=== PATIENT | female | born 1970 | race Caucasian/White ===

== ENCOUNTER 2017-03-15 19:04 | Emergency (ER) | payer OTHER ==
[~2017-03-15] VITALS: Ht 165.1 cm; Wt 57.1 kg
[~2017-03-15 19:04] MED LIST: AZIT250T94 PO; BACTDS PO; BENZ100C70 PO; CEPH-443 PO; FAMO-96 PO; HYDR-3498 PO; IBUP-1542 PO; IBUP400T22 PO; LORA1TAB54 PO; MED4DP PO; ONDA4TAB35 PO; PROM6.25 PO
[2017-03-15 19:17] VITALS: Ht 165.1 cm; Wt 57.1 kg
[2017-03-15] MEDS ORDERED: ONDANSETRON (ODT) 4 MG TAB ODT STA (22:06)
--- NOTE | 2017-03-15 22:17 | ERD ---
ER Documentation Chief Complaint Chief Complaint gen intermittent abd pain since 9am. +n/v, emesis x1. No hx of same HPI 46-year-old female presents here to emergency department for complaints of periumbilical pain vomiting twice, diarrhea one episode started today. Patient describes the pain as sharp cramping pain, 8/10 scale, not better or worse with anything. Patient did not take any medications to help with symptoms. Patient denies any fever chills. Patient denies any hematuria or dysuria. Patient denies any blood in his stool or blood in the vomit. Patient denies any black stool. ROS All systems reviewed and are negative except as per history of present illness. Medications Home Meds Active Scripts Methylprednisolone* (Medrol* DOSE PACK) 4 Mg/Dose-Pack Tab.ds.pk, 4 MG PO . DIRECTED for 5 Days, PACKET Prov:DUNG TRUONG 07/08/15 Ibuprofen* (Motrin*) 600 Mg Tab, 600 MG PO Q6, #30 TAB Prov:DUNG TRUONG 07/08/15 Famotidine* (Pepcid*) 20 Mg Tablet, 20 MG PO BID for 4 Days, TAB Prov:CHANTELL JONES PA-C 07/06/15 Hydrocodone Bit-Acetaminophen* ([place]*) 5-325 Mg Tab, 1 TAB PO Q6 Y for PAIN, # 7 TAB Prov:CHANTELL JONES PA-C 07/06/15 Benzonatate* (Tessalon Perle*) 100 Mg Capsule, 100 MG PO Q8H Y for COUGH, #20 CAP Prov:REGINALD MARCELO PA-C 06/27/15 Azithromycin* (Zithromax*) 250 Mg Tablet, 250 MG PO .ZPACK DIRECTED, #6 TAB TAKE 500 MG (2 TABS) THE FIRST DAY THEN 250 MG (1 TAB) DAYS 2-5 Prov:LEONARDA ORTIZ MD 06/24/15 Ibuprofen* (Motrin*) 600 Mg Tab, 600 MG PO Q6, #14 TAB Prov:LEONARDA ORTIZ MD 06/24/15 Promethazine w/Codeine* (Phenergan w/Codeine* Syrup) 5 Ml Syrup, 5 ML PO Q4H Y for COUGH for 5 Days, ML 6 oz Prov:LEONARDA ORTIZ MD 06/24/15 Ibuprofen* (Motrin*) 400 Mg Tab, 400 MG PO Q6H Y for PAIN, #20 TAB Prov:THONY CHAVEZ PA-C 06/06/15 Promethazine w/Codeine* (Phenergan w/Codeine* Syrup) 5 Ml Syrup, 5 ML PO Q4H Y for COUGH, #120 ML Prov:THONY CHAVEZ PA-C 06/06/15 Loratadine/Pseudoephedrine* (Claritin-D* 12 Hr) 5-120 Mg Tab.er.12h, 1 TAB PO Q12, #14 TAB.SA Prov:THONY CHAVEZ PA-C 06/06/15 Sulfamethoxazole-Trimethoprim* (Bactrim* DS) 800-160 Mg Tab, 1 TAB PO BID for 7 Days, TAB Prov:CHELO BAUMANN MD 05/23/15 Cephalexin* (Keflex*) 500 Mg Capsule, 500 MG PO QID for 7 Days, CAP Prov:CHELO BAUMANN MD 05/23/15 Ibuprofen* (Motrin*) 600 Mg Tab, 600 MG PO Q6H Y for PAIN AND OR ELEVATED TEMP, #30 TAB Prov:CHELO BAUMANN MD 05/23/15 Ondansetron Hcl* (Zofran* ODT) 4 mg -ODT Tab.disper, 4 MG PO Q6 Y for NAUSEA AND /OR VOMITING, #10 TAB Prov:CHELO BAUMANN MD 10/23/14 Allergies Allergies: Coded Allergies: No Known Allergy (Unverified , 03/15/17) PMhx/Soc Medical and Surgical Hx: pt denies Medical Hx, pt denies Surgical Hx History of Surgery: No Anesthesia Reaction: No Hx Neurological Disorder: No Hx Respiratory Disorders: No Hx Cardiac Disorders: No Hx Psychiatric Problems: No Hx Miscellaneous Medical Probl: No (PT. DENIES MEDICAL AND SURGICAL HX.) Hx Alcohol Use: No Hx Substance Use: No Hx Tobacco Use: No Smoking Status: Never smoker FmHx Family History: No coronary disease, No diabetes, No other Physical Exam Vitals Vital Signs Date Time Temp Pulse Resp B/P Pulse Ox O2 Delivery O2 Flow Rate FiO2 03/15/17 19:17 99.2 83 18 128/73 100 Physical Exam GENERAL: The patient is well developed and appropriate for usual state of health, in no apparent distress. CHEST: Clear to auscultation bilaterally. There are no rales, wheezes or rhonchi. HEART: Regular rate and rhythm. No murmurs, clicks, rubs or gallops. No S3 or S4. ABDOMEN: Soft, generalized tenderness noted. Hyperactive bowel sounds. No rebound or guarding. No gross peritonitis. No gross organomegaly or masses. No Lagunas sign or McBurney point tenderness. BACK: No midline or flank tenderness. EXTREMITIES: Equal pulses bilaterally. There is no peripheral clubbing, cyanosis or edema. No focal swelling or erythema. Full range of motion. Grossly neurovascularly intact. NEURO: Alert and oriented. Cranial nerves 2-12 intact. Motor strength in all 4 extremities with 5/5 strength. Sensation grossly intact. Normal speech and gait. SKIN: There is no apparent rash or petechia. The skin is warm and dry. HEMATOLOGIC AND LYMPHATIC: There is no evidence of excessive bruising or lymphedema. No gross cervical, axillary, or inguinal lymphadenopathy. Result Diagram: 03/15/174 03/15/174 Results 24 hrs Laboratory Tests Test 03/15/17 22:24 White Blood Count 9.610^3/ul Red Blood Count 4.5910^6/ul Hemoglobin 13.4g/dl Hematocrit 40.5% Mean Corpuscular Volume 88.2fl Mean Corpuscular Hemoglobin 29.2pg Mean Corpuscular Hemoglobin Concent 33.1g/dl Red Cell Distribution Width 13.2% Platelet Count 38514^3/UL Mean Platelet Volume 10.0fl Neutrophils % 84.5% Lymphocytes % 7.1% Monocytes % 5.1% Eosinophils % 2.5% Basophils % 0.2% Nucleated Red Blood Cells % 0.0/100WBC Neutrophils # 8.110^3/ul Lymphocytes # 0.710^3/ul Monocytes # 0.510^3/ul Eosinophils # 0.210^3/ul Basophils # 0.010^3/ul Nucleated Red Blood Cells # 0.010^3/ul Urine Color YELLOW Urine Clarity CLEAR Urine pH 6.0 Urine Specific [place] 1.015 Urine Ketones NEGATIVEmg/dL Urine Nitrite NEGATIVEmg/dL Urine Bilirubin NEGATIVEmg/dL Urine Urobilinogen NEGATIVEmg/dL Urine Leukocyte Esterase NEGATIVELeu/ul Urine Hemoglobin NEGATIVEmg/dL Urine Glucose NEGATIVEmg/dL Urine Total Protein NEGATIVEmg/dl Sodium Level 141mmol/L Potassium Level 3.8mmol/L Chloride Level 102mmol/L Carbon Dioxide Level 28mmol/L Anion Gap 15 Blood Urea Nitrogen 16mg/dl Creatinine 0.50mg/dl Glucose Level 109mg/dl Calcium Level 9.8mg/dl Total Bilirubin 0.6mg/dl Direct Bilirubin 0.00mg/dl Indirect Bilirubin 0.6mg/dl Aspartate Amino Transf (AST/SGOT) 32IU/L Alanine Aminotransferase (ALT/SGPT) 49IU/L Alkaline Phosphatase 52IU/L Total Protein 7.9g/dl Albumin 4.3g/dl Globulin 3.60g/dl Albumin/Globulin Ratio 1.19 Lipase 73U/L Current Medications Medications (Trade) Dose Ordered Sig/Bayron Route PRN Reason Start Time Stop Time Status Last Admin Dose Admin Ondansetron HCl (Zofran Odt) 4 mg ONCE STAT ODT 03/15/17 22:06 03/15/17 22:07 DC 03/15/17 22:19 Patient was given Zofran here in the emergency department. After treatment, patient was able to tolerate po fluids here in the emergency department without any vomiting. There is no signs and symptoms of dehydration. Patient was given medication for pain here in emergency department, after treatment, patient verbalized feeling much better. Patient's pain is improved. PROCEDURE: CT abdomen and pelvis without contrast. CLINICAL INDICATION: Abdominal pain TECHNIQUE: CT scan of the abdomen and pelvis without contrast was performed. Sagittal and coronal reformatted images were obtained from the axial source images. One or more of the following dose reduction techniques were used: Automated exposure control, adjustment of the mA and/or kV according to patient size, use of iterative reconstruction technique. CTDI = 6.02 mGy; DLP = 326.26 mGy-cm COMPARISON: 07/06/2015 FINDINGS: Visualized lower thorax: The lung bases are clear. There is no evidence for pleural effusion. Liver, gallbladder, pancreas and spleen: The liver is normal and size, contour and attenuation. There is no evidence for a liver mass or ductal dilatation. The gallbladder is unremarkable. No common bile duct abnormality is demonstrated. The pancreas is unremarkable. The spleen is normal in size. Adrenal glands and genitourinary system: The adrenal glands are normal bilaterally. The kidneys are normal and size, contour and attenuation with no evidence for masses, calculi or hydronephrosis. The ureters are unremarkable. No urinary bladder abnormality is demonstrated. The uterus and adnexa are unremarkable. A trace amount of free fluid in the posterior cul-de-sac is suggested, probably physiologic. Gastrointestinal system: The stomach is mildly distended with a gas/fluid level , gastritis or gastroparesis is difficult to exclude. The small bowel is normal in caliber with no ileus, obstruction or wall thickening. There is no evidence of appendicitis. Mild diverticular disease of the colon is again noted. There is no evidence for colitis or diverticulitis. Peritoneum, retroperitoneum, lymph nodes and vessels: The abdominal aorta is normal in caliber. There is no evidence for atherosclerotic calcification. The inferior vena cava is unremarkable. There is no evidence for adenopathy or mass. There is no ascites. Osseous structures and musculoskeletal findings: Sclerotic focus of the right inferior pubic ramus at the symphysis is again noted probably benign. There is no evidence of fracture or destructive lesion. 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 Mild lumbar spondylosis is noted No muscular abnormality or soft tissue pathology is present. RPTAT:HJJR IMPRESSION: 1. Gastric distension not present on 07/06/2015 equivocal for gastroparesis or possibly gastritis. 2. Minimal diverticular disease of the colon is again seen without evidence of diverticulitis. 3. Trace amount of free fluid in the posterior cul-de-sac is probably physiologic. 4. Stable focal sclerotic lesion of the right inferior pubic ramus near the symphysis is presumably benign. Physician Jarek Date Time Electronically viewed and signed by Physician Jarek on 03/15/2017 23:41 JR/ CC: TONY RENEE [employer] Procedures/MDM Medical Decision Making: Patient symptoms of abdominal pain most likely consistent with viral gastroenteritis. No symptoms of dehydration. No active vomiting at this time. There is low suspicion for abdominal emergencies at this time. Patients abdominal exam is normal at this time. Patients radiology exam does not show any abdominal emergencies at this time. There is low suspicion for appendicitis, cholecystitis, abdominal aortic aneurysms or peritonitis at this time. There is low suspicion for sepsis. Patient appears well and is hemodynamically stable. Disposition: Home. Condition: Stable Prescription Bentyl [place] Zofran Instructions: Patient is advised to take medications as prescribed. Patient is advised to rest, increase fluid intake and do brat diet for next 1-2 days and progress as tolerated. Patient is advised that if symptoms are worse, severe abdominal pain, uncontrolled vomiting, high fever, severe flank pain, worst signs and symptoms, to return to the emergency department immediately. Otherwise, patient can follow up with primary care doctor in 5-7 days. Disclaimer: Inadvertent spelling and grammatical errors are likely due to EHR/ dictation software use and do not reflect on the overall quality of patient care. Also, please note that the electronic time recorded on this note does not necessarily reflect the actual time of the patient encounter. Departure Diagnosis: Primary Impression: Viral gastroenteritis Condition: Stable Patient Instructions: Gastroenteritis, Viral (6Y-Adult) Additional Instructions: : Patient is advised to take medications as prescribed. Patient is advised to rest, increase fluid intake and do brat diet for next 1-2 days and progress as tolerated. Patient is advised that if symptoms are worse, severe abdominal pain , uncontrolled vomiting, high fever, severe flank pain, worst signs and symptoms , to return to the emergency department immediately. Otherwise, patient can follow up with primary care doctor in 5-7 days. TONY RENEE NP Mar 15, 2017 22:17
[2017-03-15 22:45] LABS: BASOPHILS % 0.2 % (0.0-2.0); EOSINOPHILS # 0.2 10^3/ul (0.0-0.5); EOSINOPHILS % 2.5 % (0.0-7.0); HEMATOCRIT 40.5 % (37.0-47.0); HEMOGLOBIN 13.4 g/dl (12.0-16.0); LYMPHOCYTES # 0.7 10^3/ul (0.8-2.9); LYMPHOCYTES % 7.1 % (15.0-51.0); MEAN CORPUSCULAR HEMOGLOBIN 29.2 pg (29.0-33.0); MEAN CORPUSCULAR HGB CONC 33.1 g/dl (32.0-37.0); MEAN CORPUSCULAR VOLUME 88.2 fl (82.0-101.0); MONOCYTE # 0.5 10^3/ul (0.3-0.9); MONOCYTES % 5.1 % (0.0-11.0); NEUTROPHIL # 8.1 10^3/ul (1.6-7.5); NEUTROPHILS % 84.5 % (39.0-77.0); PLATELET COUNT 326 10^3/UL (140-415); RED BLOOD COUNT 4.59 10^6/ul (4.20-5.40); RED CELL DISTRIBUTION WIDTH 13.2 % (11.5-14.5); WHITE BLOOD COUNT 9.6 10^3/ul (4.8-10.8)
[2017-03-15 22:56] LABS: ADD UMIC NO; UR ASCORBIC ACID NEGATIVE (NEGATIVE); UR BILIRUBIN (Dip) NEGATIVE (NEGATIVE); UR BLOOD (Dip) NEGATIVE (NEGATIVE); UR CLARITY CLEAR (CLEAR); UR COLOR YELLOW (YELLOW); UR GLUCOSE (Dip) NEGATIVE (NEGATIVE); UR KETONES (Dip) NEGATIVE (NEGATIVE); UR LEUKOCYTE ESTERASE (Dip) NEGATIVE Leu/ul (NEGATIVE); UR NITRITE (Dip) NEGATIVE (NEGATIVE); UR SPECIFIC GRAVITY (Dip) 1.015 (1.003-1.030); UR TOTAL PROTEIN (Dip) NEGATIVE (NEGATIVE); UR UROBILINOGEN (Dip) NEGATIVE (NEGATIVE)
[2017-03-15 23:18] LABS: ALBUMIN 4.3 g/dl (3.3-4.9); ALBUMIN/GLOBULIN RATIO 1.19; BILIRUBIN,INDIRECT 0.6 mg/dl (0-1.1); BILIRUBIN,TOTAL 0.6 mg/dl (0.2-1.3); CALCIUM 9.8 mg/dl (8.4-10.2); CREATININE 0.5 mg/dl (0.44-1.00); POTASSIUM 3.8 mmol/L (3.5-5.1); TOTAL PROTEIN 7.9 g/dl (6.1-8.1)
--- NOTE | 2017-03-15 23:41 | RADRPT ---
PROCEDURE: CT abdomen and pelvis without contrast. CLINICAL INDICATION: Abdominal pain TECHNIQUE: CT scan of the abdomen and pelvis without contrast was performed. Sagittal and coronal reformatted images were obtained from the axial source images. One or more of the following dose re duction techniques were used: Automated exposure control, adjustment of the mA and/or kV according t o patient size, use of iterative reconstruction technique. CTDI = 6.02 mGy; DLP = 326.26 mGy-cm COMPARISON: 07/06/2015 FINDINGS: Visualized lower thorax: The lung bases are clear. There is no evidence for pleural effusion. Liver, gallbladder, pancreas and spleen: The liver is normal and size, contour and attenuation. Th ere is no evidence for a liver mass or ductal dilatation. The gallbladder is unremarkable. No comm on bile duct abnormality is demonstrated. The pancreas is unremarkable. The spleen is normal in si ze. Adrenal glands and genitourinary system: The adrenal glands are normal bilaterally. The kidneys are normal and size, contour and attenuation with no evidence for masses, calculi or hydronephrosis. T he ureters are unremarkable. No urinary bladder abnormality is demonstrated. The uterus and adnexa are unremarkable. A trace amount of free fluid in the posterior cul-de-sac is suggested, probably p hysiologic. Gastrointestinal system: The stomach is mildly distended with a gas/fluid level, gastritis or gastr oparesis is difficult to exclude. The small bowel is normal in caliber with no ileus, obstruction o r wall thickening. There is no evidence of appendicitis. Mild diverticular disease of the colon is again noted. There is no evidence for colitis or diverticulitis. Peritoneum, retroperitoneum, lymph nodes and vessels: The abdominal aorta is normal in caliber. The re is no evidence for atherosclerotic calcification. The inferior vena cava is unremarkable. There is no evidence for adenopathy or mass. There is no ascites. Osseous structures and musculoskeletal findings: Sclerotic focus of the right inferior pubic ramus at the symphysis is again noted probably benign. There is no evidence of fracture or destructive les ion. 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 Mild lumbar spondylosis is noted No muscular abnorm ality or soft tissue pathology is present. RPTAT:HJJR IMPRESSION: 1. Gastric distension not present on 07/06/2015 equivocal for gastroparesis or possibly gastritis. 2. Minimal diverticular disease of the colon is again seen without evidence of diverticulitis. 3. Trace amount of free fluid in the posterior cul-de-sac is probably physiologic. 4. Stable focal sclerotic lesion of the right inferior pubic ramus near the symphysis is presumably benign. Physician Jarek Date Time Electronically viewed and signed by Ac Kumar Physician on 03/15/2017 23:41 /
[2017-03-16] MEDS ORDERED: HYDR-906 PO (00:05)
[2017-03-16] MEDS ORDERED: ONDA4TAB14 PO (00:05)
[2017-03-16] MEDS ORDERED: DICY10CA60 PO (00:05)
[2017-03-16] MEDS ORDERED: HYDROCODONE/APAP (5/325) TAB PO ONE (00:30)
[2017-03-16 00:32] VITALS: BP 121/65; PULSE 80; RESP 16; TEMP 98.7
[2017-03-16] MEDS ORDERED: METO10TA92 PO (22:12)
== END 2017-03-16 00:33 | disposition home or self-care (01) ==
LOC: FTE 19:04
DX: A08.4 Viral intestinal infection, unspecified (principal)
CPT/HCPCS: 36415; 74176; 80053; 81003; 83690; 85025; Z7502; Z7610

== ENCOUNTER 2017-03-16 19:36 | Emergency (ER) | payer OTHER ==
[~2017-03-16] VITALS: Ht 160 cm; Wt 56.0 kg
[~2017-03-16 19:36] MED LIST changes: +DICY10CA60 PO; +HYDR-906 PO; +ONDA4TAB14 PO
[2017-03-16 20:08] VITALS: Ht 160 cm; Wt 56.0 kg
[2017-03-16] MEDS ORDERED: morphine 4 MG/ML VIAL IV STA (20:58)
[2017-03-16] MEDS ORDERED: FAMOTIDINE 20 MG INJ IV STA (20:58)
[2017-03-16] MEDS ORDERED: SOD CHLORIDE 0.9% 1,000 ML IV STA (20:58)
[2017-03-16] MEDS ORDERED: METOCLOPRAMIDE 10 MG INJ IV STA (20:58)
--- NOTE | 2017-03-16 21:08 | ERD ---
ER Documentation Chief Complaint Chief Complaint Epigastric abdominal abd pain since yesterday; here yesterday, pain meds not working HPI 46-year-old female presents to emergency department for complaints of epigastric abdominal pain and vomiting that started yesterday, patient was seen here in the emergency department, had a full workup done, had a CT scan laboratory test results, was told to be all normal except that she was diagnosed with viral gastroenteritis, the diarrhea has improved. Patient was seen by primary care doctor this morning, was given new medications. Patient continues to have the pain, states that the [place] has helped but makes her really dizzy so she did not want to take it. Patient continues to have the pain , sharp pain, succession scale, not better or worse with anything. ROS All systems reviewed and are negative except as per history of present illness. Medications Home Meds Active Scripts Ondansetron (Ondansetron Odt) 4 Mg Tab.rapdis, 4 MG PO Q6H Y for NAUSEA AND/OR VOMITING, #20 TAB Prov:TONY RENEE NP 03/16/17 Dicyclomine Hcl* (Bentyl*) 10 Mg Capsule, 10 MG PO QID, #20 CAP Prov:TONY RENEE NP 03/16/17 Hydrocodone/Acetaminophen ([place] 5-325 Tablet) 1 Each Tablet, 1 TAB PO Q6H, #20 TAB Prov:TONY RENEE NP 03/16/17 Methylprednisolone* (Medrol* DOSE PACK) 4 Mg/Dose-Pack Tab.ds.pk, 4 MG PO . DIRECTED for 5 Days, PACKET Prov:DUNG TRUONG C 07/08/15 Ibuprofen* (Motrin*) 600 Mg Tab, 600 MG PO Q6, #30 TAB Prov:ALEXIDUNG C 07/08/15 Famotidine* (Pepcid*) 20 Mg Tablet, 20 MG PO BID for 4 Days, TAB Prov:CHANTELL JONES PA-C 07/06/15 Hydrocodone Bit-Acetaminophen* ([place]*) 5-325 Mg Tab, 1 TAB PO Q6 Y for PAIN, # 7 TAB Prov:CHANTELL JONES PA-C 07/06/15 Benzonatate* (Tessalon Perle*) 100 Mg Capsule, 100 MG PO Q8H Y for COUGH, #20 CAP Prov:REGINALD MARCELO PA-C 06/27/15 Azithromycin* (Zithromax*) 250 Mg Tablet, 250 MG PO .GABRIELCK DIRECTED, #6 TAB TAKE 500 MG (2 TABS) THE FIRST DAY THEN 250 MG (1 TAB) DAYS 2-5 Prov:LEONARDA ORTIZ MD 06/24/15 Ibuprofen* (Motrin*) 600 Mg Tab, 600 MG PO Q6, #14 TAB Prov:LEONARDA ORTIZ MD 06/24/15 Promethazine w/Codeine* (Phenergan w/Codeine* Syrup) 5 Ml Syrup, 5 ML PO Q4H Y for COUGH for 5 Days, ML 6 oz Prov:LEONARDA ORTIZ MD 06/24/15 Ibuprofen* (Motrin*) 400 Mg Tab, 400 MG PO Q6H Y for PAIN, #20 TAB Prov:THONY CHAVEZ PA-C 06/06/15 Promethazine w/Codeine* (Phenergan w/Codeine* Syrup) 5 Ml Syrup, 5 ML PO Q4H Y for COUGH, #120 ML Prov:THONY CHAVEZ PA-C 06/06/15 Loratadine/Pseudoephedrine* (Claritin-D* 12 Hr) 5-120 Mg Tab.er.12h, 1 TAB PO Q12, #14 TAB.SA Prov:THONY CHAVEZ PA-C 06/06/15 Sulfamethoxazole-Trimethoprim* (Bactrim* DS) 800-160 Mg Tab, 1 TAB PO BID for 7 Days, TAB Prov:CHELO BAUMANN MD 05/23/15 Cephalexin* (Keflex*) 500 Mg Capsule, 500 MG PO QID for 7 Days, CAP Prov:CHELO BAUMANN MD 05/23/15 Ibuprofen* (Motrin*) 600 Mg Tab, 600 MG PO Q6H Y for PAIN AND OR ELEVATED TEMP, #30 TAB Prov:CHELO BAUMANN MD 05/23/15 Ondansetron Hcl* (Zofran* ODT) 4 mg -ODT Tab.disper, 4 MG PO Q6 Y for NAUSEA AND /OR VOMITING, #10 TAB Prov:CHELO BAUMANN MD 10/23/14 Allergies Allergies: Coded Allergies: No Known Allergy (Unverified , 03/15/17) PMhx/Soc Medical and Surgical Hx: pt denies Medical Hx, pt denies Surgical Hx History of Surgery: No Anesthesia Reaction: No Hx Neurological Disorder: No Hx Respiratory Disorders: No Hx Cardiac Disorders: No Hx Psychiatric Problems: No Hx Miscellaneous Medical Probl: No (PT. DENIES MEDICAL AND SURGICAL HX.) Hx Alcohol Use: No Hx Substance Use: No Hx Tobacco Use: No FmHx Family History: No coronary disease, No diabetes, No other Physical Exam Vitals Vital Signs Date Time Temp Pulse Resp B/P Pulse Ox O2 Delivery O2 Flow Rate FiO2 03/16/17 20:08 99.9 102 20 138/82 100 Physical Exam GENERAL: The patient is well developed and appropriate for usual state of health, in no apparent distress. CHEST: Clear to auscultation bilaterally. There are no rales, wheezes or rhonchi. HEART: Regular rate and rhythm. No murmurs, clicks, rubs or gallops. No S3 or S4. ABDOMEN: Soft, nontender and nondistended. Good bowel sounds. No rebound or guarding. No gross peritonitis. No gross organomegaly or masses. No Lagunas sign or McBurney point tenderness. BACK: No midline or flank tenderness. EXTREMITIES: Equal pulses bilaterally. There is no peripheral clubbing, cyanosis or edema. No focal swelling or erythema. Full range of motion. Grossly neurovascularly intact. NEURO: Alert and oriented. Cranial nerves 2-12 intact. Motor strength in all 4 extremities with 5/5 strength. Sensation grossly intact. Normal speech and gait. SKIN: There is no apparent rash or petechia. The skin is warm and dry. HEMATOLOGIC AND LYMPHATIC: There is no evidence of excessive bruising or lymphedema. No gross cervical, axillary, or inguinal lymphadenopathy. Results 24 hrs Current Medications Medications (Trade) Dose Ordered Sig/Bayron Route PRN Reason Start Time Stop Time Status Last Admin Dose Admin Sodium Chloride (NS) 1,000 ml @ 1,000 mls/hr Q1H STAT IV 03/16/17 20:58 03/16/17 21:57 DC 03/16/17 21:14 Morphine Sulfate (morphine) 4 mg ONCE STAT IV 03/16/17 20:58 03/16/17 20:59 DC 03/16/17 21:14 Metoclopramide HCl (Reglan) 10 mg ONCE STAT IV 03/16/17 20:58 03/16/17 20:59 DC 03/16/17 21:14 Famotidine (Pepcid Iv) 20 mg ONCE STAT IV 03/16/17 20:58 03/16/17 20:59 DC 03/16/17 21:14 Patient was given medication for pain here in emergency department, after treatment, patient verbalized feeling much better. Patient's pain is improved. Patient was given Zofran here in the emergency department. After treatment, patient was able to tolerate po fluids here in the emergency department without any vomiting. There is no signs and symptoms of dehydration. Normal saline IV bolus was given here in emergency department for rehydration, patient tolerated IV fluids. I discussed this case with my attending physician, , recommended symptomatic treatment at this time, no repeat testing she recommends at this time. Procedures/MDM Medical Decision Making: Patient symptoms was likely is consistent with viral gastroenteritis. There is low suspicion for abdominal emergencies at this time. Patients abdominal exam is normal at this time. Patients radiology exam does not show any abdominal emergencies at this time. There is low suspicion for appendicitis, cholecystitis, abdominal aortic aneurysms or peritonitis at this time. There is low suspicion for sepsis. Patient appears well and is hemodynamically stable. Disposition: Home. Condition: Stable Prescription continue medications given. Added on Reglan Instructions: Patient is advised to take medications as prescribed. Patient is advised to rest, increase fluid intake and do brat diet for next 1-2 days and progress as tolerated. Patient is advised that if symptoms are worse, severe abdominal pain, uncontrolled vomiting, high fever, severe flank pain, worst signs and symptoms, to return to the emergency department immediately. Otherwise, patient can follow up with primary care doctor in 5-7 days. Disclaimer: Inadvertent spelling and grammatical errors are likely due to EHR/ dictation software use and do not reflect on the overall quality of patient care. Also, please note that the electronic time recorded on this note does not necessarily reflect the actual time of the patient encounter. Departure Diagnosis: Primary Impression: Viral gastroenteritis Condition: Stable Patient Instructions: Gastroenteritis, Viral (6Y-Adult) Additional Instructions: Patient is advised to take medications as prescribed. Patient is advised to rest, increase fluid intake and do brat diet for next 1-2 days and progress as tolerated. Patient is advised that if symptoms are worse, severe abdominal pain , uncontrolled vomiting, high fever, severe flank pain, worst signs and symptoms , to return to the emergency department immediately. Otherwise, patient can follow up with primary care doctor in 5-7 days. TONY RENEE NP Mar 16, 2017 21:08
[2017-03-16] MEDS ORDERED: METO10TA92 PO (22:12)
[2017-03-16 22:21] VITALS: BP 127/79; PULSE 78; RESP 20; TEMP 99.1
== END 2017-03-16 22:26 | disposition home or self-care (01) ==
LOC: FTE 19:36
DX: A08.4 Viral intestinal infection, unspecified (principal)
CPT/HCPCS: 96374; 96375; J2270; J2765; J7030; Z7502; Z7610

== ENCOUNTER 2018-12-11 14:31 | Emergency (ER) | payer OTHER ==
[~2018-12-11] VITALS: Ht 162.6 cm; Wt 57.3 kg
[~2018-12-11 14:31] MED LIST changes: +AMOX500C2 PO; +AZIT250T PO; -AZIT250T94 PO; +BENZ-6 PO; -BENZ100C70 PO; +D-ME118S24 PO; +DICY10CA40 PO; -DICY10CA60 PO; +FLOV110 INHALATION; +HYDR-4011 PO; -HYDR-906 PO; +IBUP-1561 PO; -IBUP400T22 PO; +METO10TA92 PO; +PROM6.2515 PO
[2018-12-11 14:49] VITALS: BP 108/61; PULSE 79; RESP 19; Ht 162.6 cm; Wt 57.3 kg
== END 2018-12-11 15:42 | disposition home or self-care (01) ==
LOC: E/R 14:31
DX: J03.90 Acute tonsillitis, unspecified (principal)
CPT/HCPCS: 99283

== ENCOUNTER 2018-12-15 14:23 | Emergency (ER) | payer OTHER ==
[~2018-12-15] VITALS: Ht 160 cm; Wt 58.7 kg
[2018-12-15 14:38] VITALS: BP 126/71; PULSE 75; RESP 16; Ht 160 cm; Wt 58.7 kg
== END 2018-12-15 15:52 | disposition home or self-care (01) ==
LOC: E/R 14:23
DX: R05 Cough (principal)
CPT/HCPCS: 71045; Z7502